=== PATIENT | female | born 1985 | race Two or more races ===

== ENCOUNTER → 2025-08-24 | Outpatient (CLI) | payer OTHER | END | disposition home or self-care (01) | LOC: PRENATAL 09:56 | PROVIDERS: ATTEND Obstetrics & Gynecology Maternal & Fetal Medicine | DX: O44.02 Complete placenta previa NOS or without hemorrhage, second trimester (principal); O09.522 Supervision of elderly multigravida, second trimester; O26.22 Pregnancy care for patient with recurrent pregnancy loss, second trimester; Z3A.21 21 weeks gestation of pregnancy ==